=== PATIENT | male | born 1975 | race Caucasian/White ===

== ENCOUNTER 2024-04-09 09:37 | Emergency (ER) | payer OTHER, SELFPAY ==
[2024-04-09 09:43] VITALS: BP 140/78; PULSE 85; RESP 14; TEMP 36.3; O2SAT 96; BMI 32.1
--- NOTE | 2024-04-09 12:06 | ED_ITS ---
HPI - Wound/Laceration <Yael Wick PA-C - Last Filed: 04/09/24 22:26> General Chief Complaint: Wound/Laceration Stated Complaint: Cut on Right thumb Time Seen by Provider: 04/09/24 11:22 Source: patient Mode of arrival: Ambulatory History of Present Illness HPI narrative: Mr. Aaron is a pleasant 48-year-old male with a past medical history of hypertension who presents to the emergency department for a laceration to his right thumb that occurred prior to arrival. Patient was working on a tire using a ratchet strap when the strap released rapidly cutting the palmar side of his right thumb. He has a 2 cm jagged laceration across the DIP of the thumb. No pain with range of motion, no involvement of the nailbed, bleeding controlled with direct pressure. Wound is dirty and he states that he does need his Tdap updated. No numbness or tingling, no other injuries. Reports that he is ambidextrous but writes with his left hand. Related Data Allergies Allergy/AdvReac Type Severity Reaction Status Date / Time No Known Drug Allergies Allergy Verified 04/09/24 09:43 Review of Systems <Yael Wick PA-C - Last Filed: 04/09/24 22:26> Review of Systems ROS Unobtainable: All systems reviewed & are unremarkable except as noted in HPI and below Patient History <Yael Wick PA-C - Last Filed: 04/09/24 22:26> Social History Smoking Status: Current every day smoker Smoking Status: Current every day smoker Exam <Yael Wick PA-C - Last Filed: 04/09/24 22:26> Narrative Exam Narrative: GENERAL: 48 year old patient appears stated age. Well-developed patient, in no acute distress. HEAD: Atraumatic. Normocephalic. NECK: Trachea midline. Cervical ROM intact. CARDIOVASCULAR: Regular rate. Strong radial pulse bilaterally. Brisk capillary refill distal to the wound. RESPIRATORY: ?Nonlabored respirations. ?Speaking in clear, full sentences? EXTREMITIES: On the palmar aspect of the right thumb, there is an approximately 2 cm very jagged laceration crossing the D IP joint fold. No involvement of the nail or the dorsal aspect of the thumb. Patient still has full flexion and extension at the MCP and the D IP. Sensation intact to light touch distal to the wound with brisk capillary refill. NEURO: AOx3. ?Clear speech. ?Moves all 4 extremities appropriately. Initial Vital Signs Initial Vital Signs: Vital Signs Temperature 97.4 F L 04/09/24 09:43 Pulse Rate 85 04/09/24 09:43 Respiratory Rate 14 04/09/24 09:43 Blood Pressure 140/78 04/09/24 09:43 Pulse Oximetry 96 04/09/24 09:43 Oxygen Delivery Method Room Air 04/09/24 09:43 <Tsering Corbett DO - Last Filed: 04/21/24 18:55> Initial Vital Signs Initial Vital Signs: Vital Signs Temperature 97.4 F L 04/09/24 09:43 Pulse Rate 85 04/09/24 09:43 Respiratory Rate 14 04/09/24 09:43 Blood Pressure 140/78 04/09/24 09:43 Pulse Oximetry 96 04/09/24 09:43 Oxygen Delivery Method Room Air 04/09/24 09:43 Procedures <JATINDER Hopper Last Filed: 04/09/24 22:26> Laceration Repair Laceration 1: Time of procedure: 13:30 Site: hand (palmar distal thumb ) Side (If applicable): right Size (cm): 2 Description: irregular Depth: simple, single layer Local Anesthetic: lidocaine 1% (digital block ) Amount of anesthesia used (mL): 5 Pre-repair: wound explored and irrigated extensively (with diluted betadine, sterile water) Skin layer closed with: nylon Skin layer suture size: 4-0 Number of sutures: 5 Technique: simple, interrupted Course <JATINDER Hopper Last Filed: 04/09/24 22:26> Orders Ordered: Discontinued Medications Bacitracin (Bacitracin Oint 0.9 Gm Pckt) 1 applic TOP NOW ONE Stop: 04/09/24 14:03 Last Admin: 04/09/24 14:06 Dose: 1 applic Documented By: NICK Cephalexin HCl (Cephalexin 250 Mg Capsule) 500 mg PO NOW ONE Stop: 04/09/24 12:31 Last Admin: 04/09/24 13:30 Dose: 500 mg Documented By: DKB Diphtheria/Tetanus/Acell Pertussis (Tet,Diph,Pertuss(Acell),Vac/Pf 0.5 Ml Syringe) 0.5 ml IM .ONCE ONE Stop: 04/09/24 12:31 Last Admin: 04/09/24 13:30 Dose: 0.5 ml Documented By: NICK Lidocaine HCl (Lidocaine 1% 20 Ml) 6 ml SUBCUT NOW ONE Stop: 04/09/24 12:31 Last Admin: 04/09/24 13:29 Dose: 6 ml Documented By: NICK Vital Signs Vital signs: Vital Signs - 8 hr 04/09/24 14:22 Pulse Rate 81 Respiratory Rate 16 Blood Pressure 135/76 Pulse Oximetry 99 Oxygen Delivery Method Room Air <Tsering Corbett DO - Last Filed: 04/21/24 18:55> Orders Ordered: Discontinued Medications Bacitracin (Bacitracin Oint 0.9 Gm Pckt) 1 applic TOP NOW ONE Stop: 04/09/24 14:03 Last Admin: 04/09/24 14:06 Dose: 1 applic Documented By: INCK Cephalexin HCl (Cephalexin 250 Mg Capsule) 500 mg PO NOW ONE Stop: 04/09/24 12:31 Last Admin: 04/09/24 13:30 Dose: 500 mg Documented By: NICK Diphtheria/Tetanus/Acell Pertussis (Tet,Diph,Pertuss(Acell),Vac/Pf 0.5 Ml Syringe) 0.5 ml IM .ONCE ONE Stop: 04/09/24 12:31 Last Admin: 04/09/24 13:30 Dose: 0.5 ml Documented By: NICK Lidocaine HCl (Lidocaine 1% 20 Ml) 6 ml SUBCUT NOW ONE Stop: 04/09/24 12:31 Last Admin: 04/09/24 13:29 Dose: 6 ml Documented By: NICK Vital Signs Vital signs: Vital Signs - 8 hr 04/09/24 14:22 Pulse Rate 81 Respiratory Rate 16 Blood Pressure 135/76 Pulse Oximetry 99 Oxygen Delivery Method Room Air MDM - Wound/Laceration <Yael Wick PA-C - Last Filed: 04/09/24 22:26> MDM Narrative Medical decision making narrative: 48-year-old male with a past medical history of hypertension who presents to the emergency department for a laceration to his right thumb that occurred prior to arrival. Differential diagnosis includes but is not limited to laceration, avulsion, abrasion, joint injury, infection, etc. On exam patient is in no acute distress, nontoxic appearing, vital signs appropriate. Has a jagged dirty laceration on the palmar aspect of his right thumb. We will update Tdap, perform digital block, irrigate and cleanse wound and repair with sutures. We will give 1st dose of Keflex in the ED. Patient tolerated procedure well, laceration repaired using 5 simple interrupted sutures, recommend removal in about 10 days. Bacitracin nonadherent dressing applied followed by an aluminum splint for support as the laceration does cross the joint line. Recommend follow up with primary care doctor also provided with follow up Orthopedics. We will treat empirically with 5 day course of cephalexin. Discussed proper wound care, signs and symptoms of infection to return to the ED for. Patient verbalized understanding of all information and is agreeable with the plan. He is stable for discharge home. Discharge Plan Departure Patient Disposition: Home Clinical Impression: Laceration of right thumb Qualifiers: Encounter type: initial encounter Damage to nail status: without damage Foreign body presence: without foreign body Qualified Code(s): S61.011A - Laceration wit hout foreign body of right thumb without damage to nail, initial encounter Instructions: DI for Laceration Repair Activity Restrictions/Additional Instructions: Today you had a laceration to your right thumb. We have placed 5 sutures. They need to be removed in 10 days. You may do this in your doctor's office, the [id number], or here if necessary. Please keep the dressing on your wound clean, dry, and intact for the next 24 hours. After this time, you may remove the dressing and gently clean the wound with soap and water, then pat dry. Keep the wound clean and covered. Avoid soaking the wound in any water such as a bath, pool, or the ocean. If you develop any signs of wound infection such as increased redness, pus drainage, streaking redness, or fevers, please return to the ER immediately for evaluation. Once sutures are removed and the wound has healed, apply sunscreen daily to reduce the appearance of scars. We updated your tetanus shot today. Please keep the splint on the wound as well to prevent separation of the laceration. You may follow up with [facility], Dr. Scanlon, for further evaluation and management of your hand wound. A 5 day course of antibiotics was sent to [email or web address] pharmacy, please complete the full course. Please follow up with your primary care doctor within the next 2-3 days for ER follow-up. (If you do not have a PCP you can call [phone]. ?to schedule an appointment with an [facility] Primary Care Provider) IF YOU DEVELOP ANY NEW OR WORSENING SYMPTOMS, RETURN TO THE ER! Please read the attached instructions, they highlight more specific treatments and interventions for you at home. Thank you for letting me participate in your care, Yael Wick PA-C Stand Alone Forms: Patient Portal/API/Survey, Work Release Note ED Sign-out <Tsering Corbett, - Last Filed: 04/21/24 18:55> Cosign ED Attending Velasquezature Attestation: I was immediately available in the department for consultation.
[2024-04-09] MEDS: LIDOCAINE 1% 20 ML 6 ML SUBCUT (13:29)
[2024-04-09] MEDS: cephALEXin 250 MG CAPSULE 500 MG PO (13:30)
[2024-04-09] MEDS: TET,DIPH,PERTUSS(ACELL),VAC/PF 0.5 ML SYRINGE IM (13:30)
[2024-04-09] MEDS: BACITRACIN OINT 0.9 GM PCKT 1 APPLIC TOP (14:06)
[2024-04-09 14:22] VITALS: BP 135/76; PULSE 81; RESP 16; O2SAT 99
== END 2024-04-09 14:23 | disposition home or self-care (01) ==
PROVIDERS: Emergency Provider Physician Assistant
DX: S61.011A Laceration without foreign body of right thumb without damage to nail, initial encounter (principal); W27.8XXA Contact with other nonpowered hand tool, initial encounter; Y99.0 Civilian activity done for income or pay; Z23 Encounter for immunization
CPT/HCPCS: 12041; 29130; 64450; 90471; 99284; 90715